=== PATIENT | male | born 1950 | race Caucasian/White ===

== ENCOUNTER 2022-03-01 08:33 | Inpatient (IN) | payer MEDICARE, BC ==
[2022-03-01] MEDS ORDERED: CEFAZOLIN 1 GM VIAL ONE (09:11)
[2022-03-01] MEDS ORDERED: Boostrix 0.5 ML (Tdap) VIAL (>/=7 yrs of age) ONE (09:11)
[2022-03-01] MEDS ORDERED: Ondansetron PF 4 MG/2 ML Vial ONE (09:11)
[2022-03-01] MEDS ORDERED: Morphine 4 MG/ML VIAL ONE (09:26)
[2022-03-01 09:27] LABS: #Basophils 0.1 10x3/uL (0.0-0.2); #Eosinphils 0.4 10x3/uL (0.0-0.5); #Monocytes 0.8 10x3/uL (0.0-1.1); #Neutrophils 13.2 10x3/uL (1.5-8.4); %Basophils 0.8 % (0.0-2.0); %Eosinophils 2.6 % (0.0-6.0); %Lymphocytes 9.7 % (18.0-47.0); %Monocytes 5.1 % (0.0-10.0); %Neutrophils 80.6 % (40.0-75.0); Hemoglobin 13.8 g/dL (13.5-17.5); Mean Corpuscular Hemoglobin 33.3 pg (27.0-33.0); Mean Corpuscular Volume 97.8 fl (81.2-95.1); Mean Platelet Volume 11.3 fl (7.4-10.4); Platelet Count 165 10x3/uL (150-450); RBC Distribution Width 12.8 % (11.5-14.5); Red Blood Cell (RBC) Count 4.15 10x6/uL (4.32-5.72); White Blood Cell (WBC) Count 16.4 10x3/uL (3.5-10.5)
[2022-03-01 09:49] LABS: ALT (SGPT) 48 U/L (8-55); AST (SGOT) 26 U/L (5-34); Albumin 3.8 g/dL (3.4-4.8); Alkaline Phosphatase 69 U/L (40-110); Anion Gap 16 mmol/L (10-20); BUN (Urea Nitrogen) 45 mg/dL (8.4-25.7); Bilirubin, Total 0.8 mg/dL (0.2-1.2); Calc. Creatinine Clearance 0 mL/min (70-130); Calcium 8.7 mg/dL (7.8-10.44); Carbon Dioxide 21 mmol/L (23-31); Chloride 105 mmol/L (98-107); Estimated GFR 80; Globulin 1.7 g/dL (2.4-3.5); Glucose 308 mg/dL (80-115); Lipase 30 U/L (8-78); Potassium 6.5 mmol/L (3.5-5.1); Protein, Total 5.5 g/dL (5.8-8.1); Sodium 135 mmol/L (136-145)
[2022-03-01 10:39] LABS: Anion Gap 16 mmol/L (10-20); BUN (Urea Nitrogen) 43 mg/dL (8.4-25.7); Calc. Creatinine Clearance 0 mL/min (70-130); Calcium 8.6 mg/dL (7.8-10.44); Carbon Dioxide 16 mmol/L (23-31); Chloride 109 mmol/L (98-107); Estimated GFR 93; Glucose 214 mg/dL (80-115); Potassium 5.9 mmol/L (3.5-5.1); Sodium 135 mmol/L (136-145)
[2022-03-01] MEDS ORDERED: Lidocaine 1% w/Epinephrine 1:200K 30 ML VIAL ONE (10:52)
[2022-03-01 11:24] LABS: Bilirubin Neg (Negative); Blood, Urine Negative (Negative); Clarity Clear (Clear); Glucose, Urine (Dipstick) >=1000 mg/dL (Negative); Ketone, Urine 15 mg/dL (Negative); Leukocyte Negative (Negative); Nitrite Negative (Negative); Protein, Urine (Dipstick) Negative (Neg-Trace); Urobilinogen Normal mg/dL (Less than 2)
[2022-03-01] MEDS ORDERED: Insulin Regular 300 UNITS/3 ML VIAL ONE (12:24)
[2022-03-01] MEDS ORDERED: Iopamidol 370 76% 100 ML VIAL ONE (13:38)
[2022-03-01] MEDS ORDERED: Sodium Bicarb 50 MEQ/50 ML VIAL ONE ×3 (14:14→14:15)
[2022-03-01] MEDS ORDERED: Ondansetron PF 4 MG/2 ML Vial IVP PRN (14:18)
[2022-03-01] MEDS ORDERED: Senokot S 8.6-50 MG TAB PO PRN (14:18)
[2022-03-01] MEDS ORDERED: Dextrose 50% Abboject 50 ML SYRINGE SLOW IVP PRN (14:25)
[2022-03-01] MEDS ORDERED: Dextrose 5% in Water 1,000 ML IV PRN (14:25)
[2022-03-01 15:32] LABS: Anion Gap 16 mmol/L (10-20); BUN (Urea Nitrogen) 46 mg/dL (8.4-25.7); Calc. Creatinine Clearance 0 mL/min (70-130); Calcium 8.9 mg/dL (7.8-10.44); Carbon Dioxide 19 mmol/L (23-31); Chloride 108 mmol/L (98-107); Estimated GFR 94; Glucose 201 mg/dL (80-115); Potassium 4.9 mmol/L (3.5-5.1); Sodium 138 mmol/L (136-145)
[2022-03-01 17:46] VITALS: BMI 26.4
[2022-03-01] MEDS: Sodium Chloride 0.9% 1,000 ML IV SCH (19:30)
[2022-03-01] MEDS: HumaLOG 300 UNITS/3 ML VIAL SC SCH ×2 (19:31→20:11)
[2022-03-01] MEDS: Acetaminophen 325 MG TAB PO PRN (20:08)
[2022-03-01] MEDS: Famotidine 20 MG TAB PO SCH (20:08)
[2022-03-01] MEDS ORDERED: Atorvastatin Calcium 40 MG TAB PO SCH (21:00)
[2022-03-02] MEDS: Sodium Chloride 0.9% 1,000 ML IV SCH ×2 (04:28→12:47)
[2022-03-02] MEDS: Acetaminophen 325 MG TAB PO PRN ×2 (04:28→12:57)
[2022-03-02 05:48] LABS: #Basophils 0.1 10x3/uL (0.0-0.2); #Eosinphils 0.2 10x3/uL (0.0-0.5); #Monocytes 1.3 10x3/uL (0.0-1.1); #Neutrophils 8.1 10x3/uL (1.5-8.4); %Basophils 0.9 % (0.0-2.0); %Eosinophils 2.1 % (0.0-6.0); %Lymphocytes 14.3 % (18.0-47.0); Hemoglobin 11.6 g/dL (13.5-17.5); Mean Corpuscular HGB CONC 34.3 g/dL (32.0-36.0); Mean Corpuscular Hemoglobin 32.9 pg (27.0-33.0); Mean Corpuscular Volume 95.8 fl (81.2-95.1); Platelet Count 145 10x3/uL (150-450); RBC Distribution Width 12.9 % (11.5-14.5); Red Blood Cell (RBC) Count 3.53 10x6/uL (4.32-5.72); White Blood Cell (WBC) Count 11.4 10x3/uL (3.5-10.5)
[2022-03-02 06:05] LABS: Anion Gap 15 mmol/L (10-20); BUN (Urea Nitrogen) 34 mg/dL (8.4-25.7); CK (CPK) 356 U/L (30-200); Calc. Creatinine Clearance 109 mL/min (70-130); Calcium 8.3 mg/dL (7.8-10.44); Carbon Dioxide 19 mmol/L (23-31); Cardiac Risk 2.8 (Less than 4.5); Chloride 110 mmol/L (98-107); Cholesterol 75 mg/dl (< 200 Desired); Estimated GFR 96; Glucose 147 mg/dL (80-115); HDL Cholesterol 27 mg/dL (>60 Neg Risk); LDL Cholesterol, Calculated 27 mg/dL; Magnesium 1.9 mg/dL (1.6-2.6); Potassium 4.1 mmol/L (3.5-5.1); Sodium 140 mmol/L (136-145); Triglycerides 106 mg/dL (Less than 150)
[2022-03-02] MEDS ORDERED: VITAMIN D3 PO SCH (09:00)
[2022-03-02] MEDS ORDERED: VITAMIN K2 PO SCH (09:00)
[2022-03-02] MEDS ORDERED: [UNRECOGNIZED DRUG - OTHER] PO SCH (09:00)
[2022-03-02] MEDS ORDERED: Multivit, Therapeutic 1 TAB PO SCH (09:00)
[2022-03-02] MEDS ORDERED: Non-Formulary Medication 1 EACH (Magnesium Glycinate [Magnesium Glycinate] 100 MG Capsule) PO SCH (09:00)
[2022-03-02] MEDS ORDERED: Lisinopril 5 MG TAB PO SCH ×2 (09:00)
[2022-03-02] MEDS ORDERED: Metoprolol Tartrate 25 MG TAB PO SCH ×2 (09:00)
[2022-03-02] MEDS ORDERED: Aspirin 81 mg Enteric Coated Tablet PO SCH (09:00)
[2022-03-02] MEDS ORDERED: Fish Oil 1,000 MG CAP PO SCH (09:00)
[2022-03-02] MEDS ORDERED: Ascorbic Acid 500 mg Chewable Tablet PO SCH (09:00)
[2022-03-02] MEDS: Famotidine 20 MG TAB PO SCH (10:28)
[2022-03-02] MEDS: HumaLOG 300 UNITS/3 ML VIAL SC SCH ×2 (12:46→18:32)
[2022-03-02 13:37] LABS: Hemoglobin A1c 6.2 % (4.0-6.0)
[2022-03-02 16:26] VITALS: TEMP 98.1
[2022-03-02] MEDS ORDERED: Triple Antibiotic Oint 1 GM Packet TOP PRN (17:14)
[2022-03-02 19:26] VITALS: BP 98/55
== END 2022-03-02 19:44 | disposition home or self-care (01) | DRG 312 ==
LOC: CSHERS 08:33 → CSHTELE 16:51
PROVIDERS: ADMIT Internal Medicine Geriatric Medicine; ATTEND Internal Medicine
PROC: 0HQ1XZZ Repair Face Skin, External Approach (ICD-10-PCS; principal; 2022-03-01)
DX: R55 Syncope and collapse (principal); E87.20 Acidosis, unspecified; E87.1 Hypo-osmolality and hyponatremia; E87.5 Hyperkalemia; I25.10 Atherosclerotic heart disease of native coronary artery without angina pectoris; E86.0 Dehydration; E78.5 Hyperlipidemia, unspecified; I10 Essential (primary) hypertension; E11.65 Type 2 diabetes mellitus with hyperglycemia; M19.90 Unspecified osteoarthritis, unspecified site; I34.0 Nonrheumatic mitral (valve) insufficiency; W10.9XXA Fall (on) (from) unspecified stairs and steps, initial encounter; S01.81XA Laceration without foreign body of other part of head, initial encounter; S51.802A Unspecified open wound of left forearm, initial encounter; Z95.5 Presence of coronary angioplasty implant and graft; I25.2 Old myocardial infarction; Z87.891 Personal history of nicotine dependence; Z79.82 Long term (current) use of aspirin; Z79.899 Other long term (current) drug therapy; Z82.49 Family history of ischemic heart disease and other diseases of the circulatory system; Z79.84 Long term (current) use of oral hypoglycemic drugs; Z20.822 Contact with and (suspected) exposure to COVID-19
CPT/HCPCS: 12004; 12014; 36415; 36416; 70450; 70486; 70551; 71045; 71260; 72125; 74177; 80048; 80053; 80061; 81003; 82550; 83036; 83690; 83735; 83880; 84484; 85025; 90471; 90715; 93005; 93306; 93880; 95816; 95819; 95957; 96374; 96375; J0690; J1815; J2270; J2405; J7050; Q9967; U0003; U0005

== ENCOUNTER 2022-03-12 08:15 | Outpatient (CLI) | payer MEDICARE, BC | END 2022-03-12 08:16 | disposition home or self-care (01) | LOC: CSHWCC 08:15 | PROVIDERS: ATTEND Preventive Medicine Undersea and Hyperbaric Medicine | DX: S51.801D Unspecified open wound of right forearm, subsequent encounter (principal); S61.401D Unspecified open wound of right hand, subsequent encounter; S51.802D Unspecified open wound of left forearm, subsequent encounter | CPT/HCPCS: 11042; 11045; 97139; G0463; 99203 ==

== ENCOUNTER 2022-03-15 15:10 | Outpatient (CLI) | payer MEDICARE, BC | END 2022-03-15 15:11 | disposition home or self-care (01) | LOC: CSHWCC 15:10 | PROVIDERS: ATTEND Preventive Medicine Undersea and Hyperbaric Medicine | DX: S51.801D Unspecified open wound of right forearm, subsequent encounter (principal); S51.802D Unspecified open wound of left forearm, subsequent encounter; S61.401D Unspecified open wound of right hand, subsequent encounter | CPT/HCPCS: 97139; G0463; 99213 ==

== ENCOUNTER 2022-03-19 10:41 | Outpatient (CLI) | payer MEDICARE, BC | END 2022-03-19 10:42 | disposition home or self-care (01) | LOC: CSHWCC 10:41 | PROVIDERS: ATTEND Preventive Medicine Undersea and Hyperbaric Medicine | DX: S61.401D Unspecified open wound of right hand, subsequent encounter (principal); S51.801D Unspecified open wound of right forearm, subsequent encounter | CPT/HCPCS: 97139; G0463; 99213 ==

== ENCOUNTER 2022-04-02 09:56 | Outpatient (CLI) | payer MEDICARE, BC | END 2022-04-02 09:57 | disposition home or self-care (01) | LOC: CSHWCC 09:56 | PROVIDERS: ATTEND Nurse Practitioner Family | DX: S51.801D Unspecified open wound of right forearm, subsequent encounter (principal); S61.401D Unspecified open wound of right hand, subsequent encounter | CPT/HCPCS: 99212; G0463 ==

== ENCOUNTER 2023-12-23 09:34 | Outpatient (CLI) | payer MEDICARE, BC | END 2023-12-23 09:35 | disposition home or self-care (01) | LOC: CSHRAD 09:34 | PROVIDERS: ATTEND Internal Medicine | DX: R13.10 Dysphagia, unspecified (principal); K22.4 Dyskinesia of esophagus | CPT/HCPCS: 74220 ==